=== PATIENT | male | born 1970 | race Caucasian/White ===

== ENCOUNTER 2017-01-09 09:33 | Emergency (ER) | payer BC ==
[~2017-01-09 09:33] MED LIST: GLIMEPIRIDE2 MG PO; LIPITOR PO; METOPROLOL TAR25 MG PO; NEURONTIN300 MG PO
[2017-01-09] MEDS ORDERED: TRUJEO (09:38)
[2017-01-09] MEDS ORDERED: ASPIRIN81 MG PO (09:39)
[2017-01-09] MEDS ORDERED: TRULICITY0.75 MG/0. (09:39)
== END 2017-01-09 10:39 | disposition home or self-care (01) ==
LOC: SED 09:33
DX: L03.116 Cellulitis of left lower limb (principal); E11.9 Type 2 diabetes mellitus without complications; I10 Essential (primary) hypertension; F17.200 Nicotine dependence, unspecified, uncomplicated; Z90.49 Acquired absence of other specified parts of digestive tract; Z88.0 Allergy status to penicillin; Z79.82 Long term (current) use of aspirin; Z79.899 Other long term (current) drug therapy
CPT/HCPCS: 96372; 99283